=== PATIENT | female | born 2000 | race Hispanic/Latino ===

== ENCOUNTER → 2023-03-22 | Emergency (ER) | payer OTHER ==
[~2023-03-22] VITALS: Ht 170.2 cm; Wt 59.0 kg
[~2023-03-22] MED LIST: ACETAMINOPHEN 325 MG TAB PO ONE; CEPH500B PO; IBUP-1493 PO; LIDOCAINE HCL 1% 20 ML VIAL INJ SCH
[2023-03-22 20:17] VITALS: BP 102/59; PULSE 89; RESP 16; O2SAT 99
== END ==
LOC: EDH 19:26
DX: S01.01XA Laceration without foreign body of scalp, initial encounter (principal); S09.90XA Unspecified injury of head, initial encounter; Z79.1 Long term (current) use of non-steroidal anti-inflammatories (NSAID); W18.09XA Striking against other object with subsequent fall, initial encounter; Y93.89 Activity, other specified; Y92.89 Other specified places as the place of occurrence of the external cause; Y99.8 Other external cause status
CPT/HCPCS: 12002; 70450; 70486; 72125